=== PATIENT | female | born 1945 | race Caucasian/White ===

== ENCOUNTER 2019-09-18 07:32 | Outpatient (CLI) ==
[2019-09-18] MEDS ORDERED: ATOR-2 PO (08:24)
[2019-09-18] MEDS ORDERED: CHOL10003 PO (08:24)
[2019-09-18] MEDS ORDERED: GLIP10TA13 PO (08:24)
[2019-09-18] MEDS ORDERED: [UNRECOGNIZED DRUG - OTHER] PO (08:24)
[2019-09-18] MEDS ORDERED: ESTR1TAB15 PO (08:24)
[2019-09-18] MEDS ORDERED: CLON0.2T PO (08:24)
[2019-09-18] MEDS ORDERED: OMEG1CAP23 PO (08:24)
[2019-09-18] MEDS ORDERED: ATEN100T PO (08:24)
[2019-09-18] MEDS ORDERED: LISI-170 PO (08:24)
[2019-09-18] MEDS ORDERED: METF500T17 PO (08:24)
[2019-09-18] MEDS ORDERED: [UNRECOGNIZED DRUG - OTHER] PO (08:39)
[2019-09-18] MEDS ORDERED: ASPI1TAB87 PO (08:39)
[2019-09-19 11:23] LABS: ALANINE AMINOTRANSFERASE 28 U/L (12-78); ALBUMIN 3.4 g/dL (3.4-5.0); ANION GAP 11 mmol/L (5-15); CALCIUM 8.7 mg/dL (8.5-10.1); CHLORIDE 110 mmol/L (98-107)
[2019-09-19 11:25] LABS: ALKALINE PHOSPHATASE 70 U/L (45-117); BILIRUBIN,TOTAL 0.3 mg/dL (0.2-1.0); TOTAL PROTEIN 7.2 g/dL (6.4-8.2)
== END 2019-09-18 23:59 | disposition home or self-care (01) ==
LOC: STAR 07:32
PROVIDERS: ATTEND Orthopaedic Surgery
DX: Z01.818 Encounter for other preprocedural examination (principal); M86.8X7 Other osteomyelitis, ankle and foot; F12.10 Cannabis abuse, uncomplicated
CPT/HCPCS: 36415; 80053; 93005

== ENCOUNTER 2019-09-22 10:08 | Day surgery (SDC) | payer MEDICARE ==
[~2019-09-22] VITALS: Ht 170.2 cm; Wt 104.4 kg
[~2019-09-22 10:08] MED LIST: ASPI1TAB87 PO; ATEN100T PO; ATOR-2 PO; CHOL10003 PO; CLON0.2T PO; ESTR1TAB15 PO; GLIP10TA13 PO; LISI-170 PO; METF500T17 PO; OMEG1CAP23 PO; [UNRECOGNIZED DRUG - OTHER] PO; [UNRECOGNIZED DRUG - OTHER] PO
[2019-09-22] MEDS ORDERED: LACTATED RINGERS 1,000 ML IV SCH (10:26)
[2019-09-22 10:30] VITALS: BP 173/107
[2019-09-22] MEDS ORDERED: GABAPENTIN 300 MG CAPSULE PO ONE (10:30)
[2019-09-22] MEDS ORDERED: ACETAMINOPHEN 500 MG TABLET PO ONE (10:30)
[2019-09-22 10:40] VITALS: BP 155/80
[2019-09-22] MEDS ORDERED: LIDOCAINE 1%, 20ML ONE (11:01)
[2019-09-22] MEDS ORDERED: BUPIVACAINE/PF 0.5% ONE (11:01)
[2019-09-22] MEDS ORDERED: FENTANYL PF 100 MCG/2ML ONE (11:10)
[2019-09-22] MEDS ORDERED: VANCOMYCIN 1,000 MG ONE (11:36)
[2019-09-22] MEDS ORDERED: TOBRAMYCIN SULFATE 1.2 GM IMP ONE (11:36)
[2019-09-22] MEDS ORDERED: MINERAL OIL 10 ML VIAL MC ONE (11:42)
[2019-09-22] MEDS ORDERED: ONDANSETRON 2MG/ML, 2ML ONE (12:58)
[2019-09-22] MEDS ORDERED: CEFAZOLIN 1,000 MG ONE (12:58)
[2019-09-22] MEDS ORDERED: PROPOFOL 10 MG/ML, 20ML ONE (12:58)
[2019-09-22] MEDS ORDERED: DEXAMETHASONE 4 MG/ML, 1ML ONE (12:58)
[2019-09-22] MEDS ORDERED: MEPERIDINE/PF 25MG/ML,1ML IVPush PRN (13:00)
[2019-09-22] MEDS ORDERED: HYDROmorphone 2 MG/ML, 1ML IVPush PRN (13:00)
[2019-09-22] MEDS ORDERED: hydrALAzine 20 MG/ML, 1ML IV PRN (13:00)
[2019-09-22] MEDS ORDERED: OXYcodone 5 MG/5 ML ORAL.SOL UDC PO PRN (13:00)
[2019-09-22] MEDS ORDERED: METOPROLOL 1 MG/ML, 5ML IV PRN (13:00)
[2019-09-22] MEDS ORDERED: ALBUTEROL/IPRATROPIUM 2.5MG/0.5MG, 3 ML NPPB PRN (13:00)
[2019-09-22] MEDS ORDERED: MIDAZOLAM 1 MG/ML, 2ML IV PRN (13:00)
[2019-09-22] MEDS ORDERED: PROMETHAZINE 25 MG/ML, 1ML IV PRN (13:00)
[2019-09-22] MEDS ORDERED: FENTANYL PF 100 MCG/2ML IV PRN (13:00)
== END 2019-09-22 15:30 | disposition home or self-care (01) ==
LOC: OUT 10:08
PROVIDERS: ATTEND Orthopaedic Surgery
DX: E11.40 Type 2 diabetes mellitus with diabetic neuropathy, unspecified (principal); E11.621 Type 2 diabetes mellitus with foot ulcer; M86.8X7 Other osteomyelitis, ankle and foot; M87.874 Other osteonecrosis, right foot; I10 Essential (primary) hypertension; E66.9 Obesity, unspecified; Z79.899 Other long term (current) drug therapy; Z88.5 Allergy status to narcotic agent
CPT/HCPCS: 11981; 15275; 28120; 82962; 87070; 87075; 87077; 87106; 87176; 87186; 87205; 88305; 88311; 97605; C1713; J0690; J1100; J2405; J2704; J3010; J3260; J3370; J7120; Q4100; Q4118